=== PATIENT | female | born 1990 ===

== ENCOUNTER 2017-12-17 15:36 | Outpatient (CLI) | payer BC ==
--- NOTE | 2017-12-17 17:45 | ULT ---
LIMITED LEFT BREAST ULTRASOUND: 12/17/2017 PROVIDED CLINICAL HISTORY: Left breast mass. FINDINGS: Limited sonographic interrogation of the left breast, in the 4 o'clock position, in the region of pal pable concern, was performed. There is an oval, circumscribed, [id number] mass, measuring appro ximately 1.1 cm, at the 4 o'clock position of the left breast. This demonstrates smooth, nonlobulate d margins, and there is no associated shadowing. IMPRESSION: BI-RADS category 3-Probably benign findings. Sonographic findings are typical for fibroadenoma. Six -month follow-up sonographic followup is recommended. The patient was advised that, should the mass become palpably larger in the interval, ultrasound should be performed at that time. POS: OFF
== END 2017-12-17 15:37 | disposition home or self-care (01) ==
LOC: BICULT 15:36
DX: N63.42 Unspecified lump in left breast, subareolar (principal)

== ENCOUNTER 2018-02-28 08:06 | Outpatient (CLI) | payer BC ==
--- NOTE | 2018-02-28 09:00 | ULT ---
ULTRASOUND LEFT BREAST LIMITED: HISTORY: Left breast mass, M63.0, M63.42. COMPARISON: Ultrasound left breast 12/17/2017. FINDINGS: At the area of interest in the left breast at 4 o'clock is a size unchanged wider than tall hypoechoi c mass increased through transmission indicating a fibroadenoma. The palpable area at 6 o'clock is a focal mound of breast tissue. No other suspicious mass. IMPRESSION: Unchanged mass in the left breast palpable at 4 o'clock with imaging findings indicating a fibroadeno ma. BI-RADS category 2: benign findings. The patient was counseled to evaluate this area monthly to evaluate for change. If there is interval enlargement or overlying mound of tissue at the 4 o'clock region which is visibly apparent due to th e near abutment of skin surface, surgical consultation or reevaluation is recommended. POS: OFF
== END 2018-02-28 08:07 | disposition home or self-care (01) ==
LOC: BICULT 08:06
PROVIDERS: ATTEND Family Medicine
DX: N63.23 Unspecified lump in the left breast, lower outer quadrant (principal)